=== PATIENT | female | born 1990 | race African-American/Black ===

== ENCOUNTER 2018-02-13 21:30 | Emergency (ER) | payer SELFPAY ==
[2018-02-13 21:42] VITALS: BP 114/70; PULSE 82; TEMP 98; BMI 22.0
--- NOTE | 2018-02-13 21:48 | PDOC ---
History of Present Illness - General History Source: Patient Exam Limitations: No Limitations - History of Present Illness Initial Comments: 02/13/18 22:05 The patient is a 28 year old female, with no significant past medical history, who presents to the emergency department with one day of frontal headache, abdominal pain, subjective fevers, and chills/sweats. She state she woke up with a headache just above her eyes which was exacerbated by light. She states she had the lights off in the house all day to accommodate. She reports generalized abdominal pain which has been constant throughout the day with fluctuating intensities. She states she had one bowel movement this morning which was followed by a moment of lightheadedness, SOB, and visual floaters when she stood up. She states she felt like passing out when she stood but reports making her way to the bed to lay down. She states she had a moment where she felt as if she needed to move her bowels and vomit, however, was unable to do either. She reports continued nausea, but denies any episodes of emesis. She reports any more bowel movements. She states she has been feeling cold and hot all day. She states her temperature was 99.7F prior to ED arrival. She states she took Tylenol a couple of hours ago. The patient denies chest pain, and dizziness. The patient denies vomit, diarrhea and constipation. The patient denies dysuria, frequency, urgency and hematuria. Allergies: NKDA <Carly Laureano - Last Filed: 02/13/18 22:05> <Nohemi Alexander - Last Filed: 02/14/18 06:10> - General Chief Complaint: Cold Symptoms Stated Complaint: FEVER,CHILLS Time Seen by Provider: 02/13/18 21:33 Past History <Carly Laureano - Last Filed: 02/13/18 22:05> - Past Medical History COPD: No - Suicide/Smoking/Psychosocial Hx Smoking History: Never smoked <Nohemi Alexander - Last Filed: 02/14/18 06:10> - Past Medical History Allergies/Adverse Reactions: Allergies Allergy/AdvReac Type Severity Reaction Status Date / Time No Known Allergies Allergy Unverified 02/13/18 21:32 Home Medications: Ambulatory Orders Ondansetron [Zofran Odt -] 4 mg SL TID PRN #12 od.tablet 02/13/18 Review of Systems - Review of Systems Able to Perform ROS?: Yes Comments:: 02/13/18 22:06 CONSTITUTIONAL: (+) fever, chills, Absent: no fatigue EYES: Absent: visual changes ENT: Absent: ear pain, no sore throat CARDIOVASCULAR: Absent: chest pain, no palpitations RESPIRATORY: (+) SOB. Absent: cough, GI: (+) abdominal pain, nausea, Absent: no vomiting, no constipation, no diarrhea GENITOURINARY: Absent: dysuria, no frequency, no hematuria MUSKULOSKELETAL: Absent: back pain, no arthralgia, no myalgia SKIN: Absent: rash NEURO: (+) headache, lightheadedness <Carly Laureano - Last Filed: 02/13/18 22:05> *Physical Exam - Vital Signs Last Vital Signs Temp Pulse Resp BP Pulse Ox 98 F 82 16 114/70 100 02/13/18 21:38 02/13/18 21:38 02/13/18 21:38 02/13/18 21:38 02/13/18 21:38 - Physical Exam Comments: 02/13/18 22:08 GENERAL: The patient is awake, alert, and fully oriented, in no acute distress. HEAD: Normal with no signs of trauma. EYES: Pupils equal, round and reactive to light, extraocular movements intact, sclera anicteric, conjunctiva clear with no pallor. ENT: (+) dry mucous membrane. Ears normal, nares patent, oropharynx clear without exudates. NECK: Normal range of motion, supple without lymphadenopathy, JVD, or masses. LUNGS: Breath sounds equal, clear to auscultation bilaterally. No wheeze/ crackles. HEART: Regular rate and rhythm, normal S1 and S2 without murmur or rub. ABDOMEN: (+) mild epigastric tenderness. Soft/nondistended. BS wnl. No guarding or rebound. No palpable masses. No hepatosplenomegaly. EXTREMITIES: Normal range of motion, no edema. No clubbing or cyanosis. No cords , erythema, or tenderness. NEUROLOGICAL: Cranial nerves II through XII grossly intact. Normal speech, normal gait. PSYCH: Normal mood, normal affect. SKIN: Warm, Dry, normal turgor, no rashes or lesions noted. <Carly Laureano - Last Filed: 02/13/18 22:05> - Vital Signs Last Vital Signs Temp Pulse Resp BP Pulse Ox 98 F 82 16 114/70 100 02/13/18 21:38 02/13/18 21:38 02/13/18 21:38 02/13/18 21:38 02/13/18 21:38 <Nohemi Alexander - Last Filed: 02/14/18 06:10> Moderate Sedation - Procedure Monitoring Vital Signs: Procedure Monitoring Vital Signs Temperature 98 F 02/13/18 21:38 Pulse Rate 82 02/13/18 21:38 Respiratory Rate 16 02/13/18 21:38 Blood Pressure 114/70 02/13/18 21:38 O2 Sat by Pulse Oximetry (%) 100 02/13/18 21:38 <Carly Laureano - Last Filed: 02/13/18 22:05> - Procedure Monitoring Vital Signs: Procedure Monitoring Vital Signs Temperature 98 F 02/13/18 21:38 Pulse Rate 82 02/13/18 21:38 Respiratory Rate 16 02/13/18 21:38 Blood Pressure 114/70 02/13/18 21:38 O2 Sat by Pulse Oximetry (%) 100 02/13/18 21:38 <Nohemi Alexander - Last Filed: 02/14/18 06:10> ED Treatment Course - LABORATORY CBC & Chemistry Diagram: 02/13/18 22:05 02/13/18 22:05 <Nohemi Alexander - Last Filed: 02/14/18 06:10> Medical Decision Making - Medical Decision Making Documentation has been prepared under my direction and personally reviewed by me in its entirety. I attest that this documented accurately reflects all work, treatment, procedures and medical decision making performed by me. As noted above, this otherwise healthy 28.y.o woman presents with low grade fever, intermittent nausea, malaise and headache for one day. Exam as noted. The patient received 1 liter of NS IV and Toradol 30 mg IV, with some improvement in symptoms Labs including Rapid Influenza were essentially normal. Clinical presentation most consistent with viral gastroenteritis. Patient will be discharged with advice to rest, adhere to a clear liquid diet. Zofran ODT 4 mg up to 3 times a day as needed for nausea will be prescribed. She should advance diet very cautiously. No work until February 16. She should return to the emergency room if she has persistent vomiting, develops severe pain or high fever <Nohemi Alexander - Last Filed: 02/14/18 06:10> *DC/Admit/Observation/Transfer - Attestations Scribe Attestion: 02/13/18 22:09 Documentation prepared by Carly Laureano, acting as medical recruiter for Nohemi Alexander MD <Carly Laureano - Last Filed: 02/13/18 22:05> <Nohemi Alexander - Last Filed: 02/14/18 06:10> Diagnosis at time of Disposition: Viral gastroenteritis - Discharge Dispostion Disposition: HOME Condition at time of disposition: Stable - Prescriptions Prescriptions: Ondansetron [Zofran Odt -] 4 mg SL TID PRN #12 od.tablet PRN Reason: Nausea - Referrals Referrals: ON STAFF,NOT [Primary Care Provider] - - Patient Instructions Printed Discharge Instructions: Viral Gastroenteritis Additional Instructions: Rest; clear liquid diet Advance diet cautiously Zofran ODT 4 mg up to 3 times a day as needed for nausea Ibuprofen/acetaminophen/naproxen for headache/fever No work until February 16 Follow-up with your doctor within the next 4-5 days Return to ER if you have severe pain/lightheadedness/persistent vomiting/high fever - Post Discharge Activity Forms/Work/School Notes: Back to Work
[2018-02-13] MEDS ORDERED: SODIUM CHLORIDE 1,000 ML IV STA (22:00)
[2018-02-13 22:27] LABS: BASO % 0.8 % (0-2.0); EOS % 0.3 % (0-4.5); HEMATOCRIT 40.2 % (32.4-45.2); HEMOGLOBIN 13.4 GM/dl (10.7-15.3); LYMPH % 9.4 % (8-40); MCH 30.7 pg (25.7-33.7); MCHC 33.4 g/dl (32.0-36.0); MEAN PLT VOLUME 8.6 fl (7.5-11.1); MONO % 4.3 % (3.8-10.2); NEUT % 85.2 % (42.8-82.8); PLATELET COUNT 229 K/MM3 (134-434); RBC 4.37 M/mm3 (3.60-5.2); RDW 12.2 % (11.6-15.6); WHITE BLOOD COUNT 7.3 K/mm3 (4.0-10.8)
[2018-02-13 22:42] LABS: HCG,QUALITATIVE URINE Negative
[2018-02-13 22:43] LABS: ALBUMIN 3.7 g/dl (3.5-5.0); ALK PHOS 46 U/L (32-92); ANION GAP 7 MMOL/L (8-16); BILIRUBIN,TOTAL 0.9 mg/dl (0.2-1.0); BLOOD UREA NITROGEN 11 mg/dl (7-18); CALCIUM 8.3 mg/dl (8.4-10.2); CHLORIDE 103 mmol/L (98-107); CO2 23 mmol/L (22-28); CREATININE 0.7 mg/dl (0.6-1.3); GLUCOSE,RANDOM 91 mg/dl (74-106); POTASSIUM 3.7 mmol/L (3.5-5.1); SGOT/AST 20 U/L (10-42); SGPT/ALT 17 U/L (10-40); SODIUM 133 mmol/L (136-145); TOT PROT 7.1 g/dl (6.4-8.3)
[2018-02-13 22:44] LABS: PH,URINE 6.5 (4.5-8); URINE APPEARANCE Clear; URINE BILIRUBIN Negative (NEGATIVE); URINE COLOR Yellow; URINE GLUCOSE (UA) Negative (NEGATIVE); URINE KETONE Trace (NEGATIVE); URINE LEUK ESTERASE Negative (NEGATIVE); URINE NITRITE Negative (NEGATIVE); URINE PROTEIN Negative (NEGATIVE)
[2018-02-13] MEDS ORDERED: KETOROLAC TROMETHAMINE 30 MG/1 ML VIAL IVPUSH ONE (23:56)
[2018-02-13] MEDS ORDERED: KETOROLAC TROMETHAMINE 30 MG/1 ML VIAL ONE (23:57)
== END 2018-02-14 00:29 | disposition home or self-care (01) ==
LOC: FER 21:30
PROC: 3E0333Z Introduction of Anti-inflammatory into Peripheral Vein, Percutaneous Approach (ICD-10-PCS; principal; 2018-02-13)
PROC: 3E0337Z Introduction of Electrolytic and Water Balance Substance into Peripheral Vein, Percutaneous Approach (ICD-10-PCS; 2018-02-13)
DX: A08.4 Viral intestinal infection, unspecified (principal)
CPT/HCPCS: 36415; 80053; 81003; 84703; 85025; 87804; 99283-25; J7030